=== PATIENT | male | born 1965 | race Caucasian/White ===

== ENCOUNTER 2020-08-30 12:25 | Emergency (ER) | payer OTHER ==
[~2020-08-30] VITALS: Ht 177.8 cm; Wt 90.9 kg
[2020-08-30 12:35] VITALS: BP 142/75; Ht 177.8 cm; Wt 90.9 kg
[2020-08-30] MEDS ORDERED: ERYTHROMYCIN OPT1 GM EACH EYE (13:04)
== END 2020-08-30 13:28 | disposition home or self-care (01) ==
LOC: D.ER 12:25
DX: H16.8 Other keratitis (principal)